=== PATIENT | male | born 2000 | race Caucasian/White ===

== ENCOUNTER 2021-02-19 14:01 | Emergency (ER) | payer OTHER ==
[~2021-02-19] VITALS: Ht 162.6 cm; Wt 66.2 kg
[2021-02-19 14:19] VITALS: BP 117/44
--- NOTE | 2021-02-19 14:19 | NUR ---
21 Y/O MALE BIB SELF C/O BACK PAIN XMONDAY. PT STATES FELL OFF LADDER AND LANDED ON PICKET FENCE. PT STATES 8/10 STIFFNESS AND TIGHTNESS. DENIES LOC. TAKING IBUPROFEN WITH NO RELIEF. PAIN RADIATING TO SPINE AND RT SHOULDER. MEDHX: DENIES ALLERGIES: AMOXICILLIN, PENICILLIN
[2021-02-19] MEDS ORDERED: KETOROLAC 30 MG/ML VIAL IM ONE (14:55)
--- NOTE | 2021-02-19 15:00 | NUR ---
Patient appears to be resting comfortably in bed. Vital Signs within normal limits. Respirations even and unlabored. NO SIGNS OF DISCOMFORT OR DISTRESS. WILL CONTINUE TO MONITOR.
[2021-02-19] MEDS ORDERED: NAPR-54 PO (16:10)
[2021-02-19] MEDS ORDERED: METH-1681 PO (16:10)
[2021-02-19] MEDS ORDERED: LIDO1ADH47 TP (16:10)
[2021-02-19 16:20] VITALS: BP 115/46
--- NOTE | 2021-02-19 16:20 | NUR ---
Patient discharged with v/s stable. Written and verbal after care instructions given and explained. Patient alert, oriented and verbalized understanding of instructions. Ambulatory with steady gait. All questions addressed prior to discharge. ID band removed. Patient advised to follow up with PMD. Rx of LIDOCAINE, ROBAXIN, NAPROSYN given. Patient educated on indication of medication including possible reaction and side effects. Opportunity to ask questions provided and answered.
== END 2021-02-19 16:20 | disposition home or self-care (01) ==
LOC: MED 14:01
DX: S39.012A Strain of muscle, fascia and tendon of lower back, initial encounter (principal); Z88.0 Allergy status to penicillin; Z88.1 Allergy status to other antibiotic agents; Z79.899 Other long term (current) drug therapy; W11.XXXA Fall on and from ladder, initial encounter; Y93.89 Activity, other specified; Y92.89 Other specified places as the place of occurrence of the external cause; Y99.8 Other external cause status
CPT/HCPCS: 72072; 72110; 96372; 99284; J1885

== ENCOUNTER 2023-02-12 09:27 | Emergency (ER) | payer MEDICAID, OTHER ==
[~2023-02-12] VITALS: Ht 165.1 cm; Wt 73.5 kg
[~2023-02-12 09:27] MED LIST: LIDO1ADH47 TP; METH-1681 PO; NAPR-54 PO
[2023-02-12 09:40] VITALS: BP 95/57; PULSE 61; RESP 18; TEMP 97.1; O2SAT 98
[2023-02-12] MEDS ORDERED: LOPE1TAB14 PO (11:08)
[2023-02-12] MEDS ORDERED: OMEP40EC23 PO (11:08)
[2023-02-12] MEDS ORDERED: ONDA-188 PO (11:08)
[2023-02-12] MEDS ORDERED: BISM262C52 PO (11:08)
[2023-02-12 11:14] LABS: FLU A ANTIGEN negative (NEGATIVE); FLU B ANTIGEN NEGATIVE (NEGATIVE)
[2023-02-12 11:45] VITALS: BP 95/57; PULSE 61; RESP 18; TEMP 97.1; O2SAT 98
== END 2023-02-12 11:45 | disposition home or self-care (01) ==
LOC: MED 09:27
DX: A08.4 Viral intestinal infection, unspecified (principal); Z20.822 Contact with and (suspected) exposure to COVID-19; F12.90 Cannabis use, unspecified, uncomplicated; Z79.899 Other long term (current) drug therapy; Z79.1 Long term (current) use of non-steroidal anti-inflammatories (NSAID); Z88.0 Allergy status to penicillin
CPT/HCPCS: 99283